=== PATIENT | female | born 1990 | race Caucasian/White ===

== ENCOUNTER 2017-08-30 17:12 | Emergency (ER) | payer OTHER ==
[2017-08-30 17:18] VITALS: BP 136/86
[2017-08-30] MEDS ORDERED: valACYclovir 500 MG TABLET PO STA (17:25)
--- NOTE | 2017-08-30 17:27 | ED Physician Documentation ---
History of Present Illness - Stated complaint Stated Complaint: MOUTH PX - Chief complaint Chief Complaint: Heent - History obtained from History obtained from: Patient - History of Present Illness Timing: How many weeks ago (3) Pain level max: 5 Pain level now: 3 Improved by: Nothing Worsened by: touch - Additonal information Additional information: Patient is a 27-year-old female who presents to the emergency department with swelling and soreness to the lips intermittently for the past 3-4 weeks. Usually lasts for a few days and then resolved, but has since recurred. Tried Abreva, but is still having pain. No fevers. No sore throat. No dental pain. She is not , breast-feeding or trying to become . Review of Systems Constitutional: denies: Fever, Chills Nose: denies: Rhinorrhea / runny nose, Congestion Throat: denies: Sore throat Cardiac: denies: Chest pain / pressure Respiratory: denies: Cough GI: denies: Vomiting, Diarrhea : denies: Now EGA Skin: denies: Rash Musculoskeletal: denies: Neck pain, Back pain PD PAST MEDICAL HISTORY - Past Medical History Past Medical History: No - Past Surgical History Past Surgical History: No - Present Medications Home Medications: Ambulatory Orders Medication Instructions Recorded Confirmed Valacyclovir HCl [Valacyclovir] 2,000 mg PO ONCE #2 tablet 08/30/17 - Allergies Allergies/Adverse Reactions: Allergies Allergy/AdvReac Type Severity Reaction Status Date / Time No Known Drug Allergies Allergy Verified 08/30/17 17:18 - Social History Does the pt smoke?: No Smoking Status: Never smoker Does the pt drink ETOH?: No Does the pt have substance abuse?: No - Immunizations Immunizations are current?: Yes PD ED PE NORMAL - Vitals Vital signs reviewed: Yes - General General: Alert and oriented X 3, No acute distress, Well developed/nourished - HEENT HEENT: PERRL, Ears normal, Moist mucous membranes, Pharynx benign, Dentition benign, Other (Two small blistered areas to the lower lip.) - Neck Neck: Supple, no meningeal sign, No adenopathy - Cardiac Cardiac: RRR - Respiratory Respiratory: No respiratory distress, Clear bilaterally - Derm Derm: Warm and dry - Neuro Neuro: Alert and oriented X 3 - Psych Psych: Normal mood, Normal affect Results - Vitals Vitals: Vital Signs - 24 hr 08/30/17 17:16 Temperature 36.7 C Heart Rate 65 Respiratory 16 Rate Blood Pressure 136/86 H O2 Saturation 100 Oxygen O2 Source Room air PD MEDICAL DECISION MAKING - ED course Complexity details: considered differential, d/w patient ED course: Patient is a 27-year-old female with what appears to be herpes labialis. Will place her on valacyclovir 2 g p.o. twice daily 1 day. First dose given here. Pharmacies are closed tonight. We will have her take the second dose in the morning. Patient is well-appearing, nontoxic. Afebrile. Tolerating p.o. without difficulty. Patient counseled regarding signs and symptoms for which I believe and urgent re-evaluation would be necessary. Patient with good understanding of and agreement to plan and is comfortable going home at this time This document was made in part using voice recognition software. While efforts are made to proofread this document, sound alike and grammatical errors may occur. Departure - Departure Disposition: 01 Home, Self Care Clinical Impression: Herpes labialis Condition: Good Instructions: ED Herpes Simplex Virus Type 1 Follow-Up: your,doctor as needed. [Other] Prescriptions: Valacyclovir HCl [Valacyclovir] 2,000 mg PO ONCE #2 tablet Comments: Take the second dose as soon as possible tomorrow morning. This should heal in the next 3-4 days. You may need to talk to your doctor about chronic suppressive therapy if this continues to occur. Discharge Date/Time: 08/30/17 17:37
[2017-08-30] MEDS ORDERED: valACYclovir 500 MG TABLET ONE (17:38)
== END 2017-08-30 17:37 | disposition home or self-care (01) ==
LOC: ED 17:12
DX: B00.1 Herpesviral vesicular dermatitis (principal)
CPT/HCPCS: 99281; 99283; A9270

== ENCOUNTER 2022-03-01 08:00 | Outpatient (CLI) | payer OTHER | END 2022-03-01 23:59 | disposition home or self-care (01) | LOC: LAB.N 08:00 | PROVIDERS: ATTEND Family Medicine | DX: R30.0 Dysuria (principal) | CPT/HCPCS: 87086 ==

== ENCOUNTER 2024-04-19 07:46 | Outpatient (CLI) | payer OTHER ==
--- NOTE | 2024-04-19 14:50 | MRI Report ---
PROCEDURE: Lumbar Spine WO INDICATIONS: LOW BACK PAIN TECHNIQUE: Noncontrast sagittal T1 spin echo and T2 fast echo, sagittal STIR, axial T1 and T2 fast spin echo thr ough the lumbar spine. In cases with scoliosis, additional coronal T2 fast spin echo may be performe d. COMPARISON: None. FINDINGS: Image quality: Excellent. Alignment and Curvature: No plain films are available for comparison. Thus, for numbering purposes, 5 lumbar type vertebral bodies will be presumed for the current report. This should be confirmed with plain film correlation prior to any lumbar spinal intervention. 2 mm of retrolisthesis of L2 on L3. Bone Marrow: Marrow is of normal overall signal. No acute vertebral body compression fractures. Mo derate reactive signal within the endplates adjacent to the L5-S1 intervertebral discs. Mild reactive signal within the remaining lumbar and lower thoracic endplates. Spinal Cord: Conus medullaris terminates at the L1 level. Visualized cord demonstrates normal signa l and size. Paraspinous Soft Tissues: No paravertebral masses. T12-L1: Normal in appearance. L1-L2: Normal in appearance. L2-L3: Mild disc desiccation and diffuse disc bulge with superimposed small broad-based central pr otrusion. Moderate epidural lipomatosis. Mild canal stenosis. Mild bilateral foraminal stenosis. L3-L4: Mild disc desiccation and diffuse disc bulge. Mild facet and ligament flavum hypertrophy. Mi ld canal stenosis. Mild bilateral foraminal stenosis. L4-L5: Mild disc desiccation and diffuse disc bulge with superimposed small broad-based central pro trusion. Mild bilateral facet hypertrophy. Mild canal stenosis. No foraminal stenosis. L5-S1: Moderate disc desiccation. Mild disc height loss and diffuse disc bulge. Mild canal stenosis . Mild bilateral foraminal stenosis. IMPRESSION: 1. Multilevel degenerative disc and facet disease, in addition to epidural lipomatosis and ligamentum flavum hypertrophy. 2. Mild multilevel canal and foraminal stenoses. No neural impingement. Reviewed by: Dwight Woodson MD on 04/19/2024 2:49 PM PDT Approved by: Dwight Woodson MD on 04/19/2024 2:49 PM PDT Station ID: [id number]
== END 2024-04-19 07:47 | disposition home or self-care (01) ==
LOC: DI 07:46
PROVIDERS: ATTEND Nurse Practitioner Family
DX: M47.816 Spondylosis without myelopathy or radiculopathy, lumbar region (principal); M51.36 Other intervertebral disc degeneration, lumbar region; M51.26 Other intervertebral disc displacement, lumbar region; M48.061 Spinal stenosis, lumbar region without neurogenic claudication; M51.37 Other intervertebral disc degeneration, lumbosacral region; M48.07 Spinal stenosis, lumbosacral region; E88.2 Lipomatosis, not elsewhere classified